=== PATIENT | male | born 1975 | race Caucasian/White ===

== ENCOUNTER 2017-11-29 16:26 | Emergency (ER) | payer OTHER ==
[2017-11-29 16:38] VITALS: BP 150/98; PULSE 66; TEMP 98.4; BMI 31.9
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
[2017-11-29] MEDS ORDERED: diazePAM 5 MG TABLET PO ONE (18:46)
[2017-11-29] MEDS ORDERED: KETOROLAC TROMETHAMINE 30 MG/1 ML VIAL IM ONE (18:46)
[2017-11-29] MEDS ORDERED: diazePAM 5 MG TABLET ONE (18:49)
[2017-11-29] MEDS ORDERED: KETOROLAC TROMETHAMINE 30 MG/1 ML VIAL ONE (18:49)
== END 2017-11-29 19:54 | disposition home or self-care (01) ==
LOC: JER 16:26
PROC: 3E0333Z Introduction of Anti-inflammatory into Peripheral Vein, Percutaneous Approach (ICD-10-PCS; principal; 2017-11-29)
DX: S09.8XXA Other specified injuries of head, initial encounter (principal); M54.2 Cervicalgia; M54.6 Pain in thoracic spine; M54.5 Low back pain; M25.562 Pain in left knee; M25.512 Pain in left shoulder; V47.5XXA Car driver injured in collision with fixed or stationary object in traffic accident, initial encounter; W22.11XA Striking against or struck by driver side automobile airbag, initial encounter; Y92.414 Local residential or business street as the place of occurrence of the external cause; Y93.89 Activity, other specified; Y99.8 Other external cause status
CPT/HCPCS: 70450-TC; 72070-TC-FY; 72100-TC-FY; 72125-TC; 73030-TC-LT-FY; 73560-TC-LT-FY; 99281-25

== ENCOUNTER 2018-02-19 07:17 | Emergency (ER) | payer BC, OTHER ==
[2018-02-19 07:31] VITALS: BP 149/85; PULSE 84; TEMP 98.6; BMI 30.4
--- NOTE | 2018-02-19 07:33 | PDOC ---
History of Present Illness <Tereas White - Last Filed: 02/19/18 08:41> - History of Present Illness Initial Comments: patient is a 42 year old male, with no pmh , who presents to the emergency department after receiving head laceration this AM. Pt was bending down to get cat food out of bottom shelves and upon standing hit his head on an open wooden cabinet door on the R posterior cranium. Pt received 1.5 cm stellate laceration from trauma with no detritus noted in wound. Pt denies any LOC, FNDs, vision changes, but endorses pain at laceration site. Pt is not on AC. Unknown last date of tetanus shot. The patient denies chest pain, shortness of breath, headache or dizziness. Denies fever, chills, nausea, vomiting, diarrhea and constipation. Denies dysuria, frequency, urgency and hematuria. Allergies: NKDA Past Surgical History: None reported Social History: No toxic habits reported PMD: Dr. Lees 02/19/18 07:31 <Manny Gutierrez - Last Filed: 02/19/18 18:14> - General Chief Complaint: Laceration Stated Complaint: LACERATION ON HEAD Past History <Teresa White - Last Filed: 02/19/18 08:41> - Past Medical History COPD: No - Suicide/Smoking/Psychosocial Hx Smoking History: Never smoked Have you smoked in the past 12 months: No Hx Alcohol Use: No Drug/Substance Use Hx: No Substance Use Type: None <Manny Gutierrez - Last Filed: 02/19/18 18:14> - Past Medical History Allergies/Adverse Reactions: Allergies Allergy/AdvReac Type Severity Reaction Status Date / Time No Known Allergies Allergy Verified 02/19/18 07:26 Home Medications: Ambulatory Orders Diazepam [Valium] 5 mg PO DAILY #3 tablet MDD 1 11/29/17 Review of Systems - Review of Systems Comments:: GENERAL/CONSTITUTIONAL: No fever or chills. No weakness. HEAD, EYES, EARS, NOSE AND THROAT: No change in vision. No ear pain or discharge. No sore throat. CARDIOVASCULAR: No chest pain or shortness of breath RESPIRATORY: No cough, wheezing, or hemoptysis. GASTROINTESTINAL: No nausea, vomiting, diarrhea or constipation. GENITOURINARY: No dysuria, frequency, or change in urination. MUSCULOSKELETAL: No joint or muscle swelling or pain. No neck or back pain. SKIN: No rash NEUROLOGIC: PALM at laceration site; No, vertigo, loss of consciousness, or change in strength/sensation. ENDOCRINE: No increased thirst. No abnormal weight change HEMATOLOGIC/LYMPHATIC: No anemia, easy bleeding, or history of blood clots. ALLERGIC/IMMUNOLOGIC: No hives or skin allergy. 02/19/18 07:31 02/19/18 07:44 <Manny Gutierrez - Last Filed: 02/19/18 18:14> *Physical Exam - Vital Signs Last Vital Signs Temp Pulse Resp BP Pulse Ox 98.6 F 84 18 149/85 99 02/19/18 07:24 02/19/18 07:24 02/19/18 07:24 02/19/18 07:24 02/19/18 07:24 <Teresa White - Last Filed: 02/19/18 08:41> - Vital Signs Last Vital Signs Temp Pulse Resp BP Pulse Ox 98.6 F 84 18 149/85 99 02/19/18 07:24 02/19/18 07:24 02/19/18 07:24 02/19/18 07:24 02/19/18 07:24 - Physical Exam Comments: GENERAL: MA man, Awake, alert, and fully oriented, in no acute distress HEAD: 1.5 CM stellate laceration on R posterior cranium with no signs of other trauma, shiva deformities or other lacerations. No normocephalic, atraumatic EYES: PERRLA, EOMI, sclera anicteric, conjunctiva clear ENT: Auricles normal inspection, hearing grossly normal, nares patent, oropharynx clear without exudates. Moist mucosa NECK: Normal ROM, supple, no lymphadenopathy, JVD, or masses LUNGS: No distress, speaks full sentences, clear to auscultation bilaterally HEART: Regular rate and rhythm, normal S1 and S2, no murmurs, rubs or gallops, peripheral pulses normal and equal bilaterally. ABDOMEN: Soft, nontender, normoactive bowel sounds. No guarding, no rebound. No masses EXTREMITIES : Normal inspection, Normal range of motion, no edema. No clubbing or cyanosis. NEUROLOGICAL: Cranial nerves II through XII grossly intact. Normal speech, normal gait, no focal sensorimotor deficits SKIN: Warm, Dry, normal turgor, no rashes or lesions noted 02/19/18 07:31 <Manny Gutierrez - Last Filed: 02/19/18 18:14> ED Treatment Course - Medications Given in the ED: ED Medications Discontinued Medications Generic Name Dose Route Start Last Admin Trade Name Jose Antonio PRN Reason Stop Dose Admin Diphtheria/Tetanus/Acell Pertussis 0.5 ml 02/19/18 07:48 02/19/18 08:19 Boostrix - IM 02/19/18 07:49 0.5 ml .ONCE ONE Administration <Teresa White - Last Filed: 02/19/18 08:41> Medical Decision Making - Medical Decision Making patient is a 42 year old male, with no pmh , who presents to the emergency department after receiving head laceration this AM. Pt will receive wound maureen for approximation of tissue, tetanus booster and will be counseled on home wound care. 02/19/18 07:46 Pt with good pain control, vss. Instructed on proper home wound care, return to ED in 7-10 days for staple removal 02/19/18 18:14 <Manny Gutierrez - Last Filed: 02/19/18 18:14> *DC/Admit/Observation/Transfer <Teresa White - Last Filed: 02/19/18 08:41> - Discharge Dispostion Decision to Admit order: No <Manny Gutierrez - Last Filed: 02/19/18 18:14> Diagnosis at time of Disposition: Head trauma Laceration of head Qualifiers: Encounter type: initial encounter Location of open wound of head: scalp Foreign body presence: without foreign body Qualified Code(s): S01.01XA - Laceration without foreign body of scalp, initial encounter - Discharge Dispostion Disposition: HOME Condition at time of disposition: Good - Referrals Referrals: Ivory Lees MD [Primary Care Provider] - 1 week - Patient Instructions Printed Discharge Instructions: DI for Laceration Repair, DI for Closed Head Injury Additional Instructions: During your visit to the [facility] ED, you were evaluated for a scalp laceration. You received maureen for wound repair, as well as topical antibiotic. You are being discharged home with outpatient follow-up with your primary care provider , Dr. Lees and follow-up with 7-10 days for staple removal in ED. Please take tylenol 650mg every four hours if you experience pain at laceration site until your symptoms resolve. If you experience any of the following symptoms, please return to the ED: - Persistent fevers/chills >3 days - Redness, swelling or pus drainage from laceration site - Changes in vision, numbness/weakness in any extremities, or persistent dizziness/loss of consciousness - Any new or concerning symptoms - Post Discharge Activity
[2018-02-19] MEDS ORDERED: DIPHTH,PERTUSS(ACELL),TET 0.5 ML DISP.SYRIN IM ONE (07:48)
[2018-02-19] MEDS ORDERED: BACITRACIN 0.9 GM PACKET ONE (07:58)
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
== END 2018-02-19 08:51 | disposition home or self-care (01) ==
LOC: JER 07:17
PROC: 0HQ0XZZ Repair Scalp Skin, External Approach (ICD-10-PCS; principal; 2018-02-19)
PROC: 3E0234Z Introduction of Serum, Toxoid and Vaccine into Muscle, Percutaneous Approach (ICD-10-PCS; 2018-02-19)
DX: S01.01XA Laceration without foreign body of scalp, initial encounter (principal); W22.8XXA Striking against or struck by other objects, initial encounter; Y93.89 Activity, other specified; Y92.010 Kitchen of single-family (private) house as the place of occurrence of the external cause; Y99.8 Other external cause status
CPT/HCPCS: 90715; 99284-25

== ENCOUNTER 2019-01-28 11:31 | Emergency (ER) | payer OTHER ==
[2019-01-28 12:11] VITALS: BMI 42.5
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
[2019-01-28 13:52] LABS: BASO % 0.3 % (0-2.0); EOS % 0.5 % (0-4.5); HEMATOCRIT 41.3 % (35.4-49); HEMOGLOBIN 13.7 GM/dL (11.7-16.9); MCH 30.9 pg (25.7-33.7); MCHC 33.3 g/dl (32.0-35.9); MONO % 7.2 % (3.8-10.2); PLATELET COUNT 199 K/MM3 (134-434); RBC 4.44 M/mm3 (4.00-5.60); RDW 12.2 % (11.9-15.9); WHITE BLOOD COUNT 4.6 K/mm3 (4.0-10.0)
[2019-01-28 14:11] LABS: ALBUMIN 4.3 g/dl (3.4-5.0); BILIRUBIN,TOTAL 0.9 mg/dL (0.2-1); CREATININE 1.1 mg/dL (0.55-1.3); POTASSIUM 4.1 mmol/L (3.5-5.1); TOT PROT 7.9 g/dl (6.4-8.2)
[2019-01-28 14:28] LABS: EPI CELLS 0.5 /HPF (0-5/HPF); URINE APPEARANCE CLEAR; URINE BACTERIA 3.2 /hpf (NEGATIVE); URINE BILIRUBIN NEGATIVE (NEGATIVE); URINE CASTS 4 /lpf (0-8); URINE COLOR YELLOW; URINE GLUCOSE (UA) NEGATIVE (NEGATIVE); URINE KETONE NEGATIVE (NEGATIVE); URINE LEUK ESTERASE NEGATIVE (NEGATIVE); URINE NITRITE NEGATIVE (NEGATIVE); URINE PROTEIN NEGATIVE (NEGATIVE); URINE RBC 24 /hpf (0-4); URINE UROBILINOGEN 0.2 mg/dL (0.2-1.0); URINE WBC 1 /hpf (0-5)
[2019-01-28] MEDS ORDERED: morphine CARPU-JECT 4 MG/1 ML DISP.SYRIN IVPUSH ONE (14:35)
[2019-01-28] MEDS ORDERED: morphine SULFATE 4 MG/ML VIAL ONE (14:39)
[2019-01-28] MEDS ORDERED: METHOCARBAMOL 500 MG TABLET PO ONE (14:48)
[2019-01-28] MEDS ORDERED: METHOCARBAMOL 500 MG TABLET ONE (14:50)
[2019-01-28] MEDS ORDERED: KETOROLAC TROMETHAMINE 30 MG/1 ML VIAL IVPUSH ONE (14:54)
[2019-01-28] MEDS ORDERED: KETOROLAC TROMETHAMINE 30 MG/1 ML VIAL ONE (14:58)
[2019-01-28 16:20] VITALS: BP 138/85; PULSE 67; TEMP 98.1
--- NOTE | 2019-01-29 09:54 | EKG ---
Test Reason : Blood Pressure : / mmHG Vent. Rate : 060 BPM Atrial Rate : 060 BPM P-R Int : 182 ms QRS Dur : 090 ms QT Int : 408 ms P-R-T Axes : 030 018 009 degrees QTc Int : 408 ms NORMAL SINUS RHYTHM NORMAL ECG NO PREVIOUS ECGS AVAILABLE Confirmed by MIKAEL GREGORIO MD ([id number]) on 01/29/2019 9:53:56 AM Referred By: Confirmed By:MIKAEL GREGORIO MD
== END 2019-01-28 17:19 | disposition home or self-care (01) ==
LOC: JER 11:31
PROC: 3E0333Z Introduction of Anti-inflammatory into Peripheral Vein, Percutaneous Approach (ICD-10-PCS; principal; 2019-01-28)
PROC: 3E033NZ Introduction of Analgesics, Hypnotics, Sedatives into Peripheral Vein, Percutaneous Approach (ICD-10-PCS; 2019-01-28)
DX: Z04.1 Encounter for examination and observation following transport accident (principal); V43.52XA Car driver injured in collision with other type car in traffic accident, initial encounter; Y93.89 Activity, other specified; Y92.410 Unspecified street and highway as the place of occurrence of the external cause
CPT/HCPCS: 36415; 70450-TC; 71046-TC-FY; 71101-TC-LT-FY; 72125-TC; 72128-TC; 72131-TC; 73030-TC-LT-FY; 73070-TC-LT-FY; 80053; 81003; 82550; 82553; 84484; 85025; 93005; 93010; 99283-25